=== PATIENT | male | born 1960 | race Caucasian/White ===

== ENCOUNTER 2016-09-30 19:46 | Emergency (ER) | payer MEDICARE ==
[~2016-09-30 19:46] MED LIST: ADVAIR 250-501 EACH INH; ASPIRIN EC81 MG PO; BUMETANIDE1 MG PO; COMBIVENT0.074 GM/I INH; CRESTOR20 MG PO; GLUCOPHAGE1000 MG PO; HYDRALAZINE HCL25 MG PO; ISOSORBIDE MON120 MG PO; KLONOPIN TAB 00.5 MG PO; LORTAB 5-325 M1 EACH PO; LORTAB 7.5-3251 EACH PO; LOSARTAN POTAS100 MG PO; MAG6464 MG PO; NEURONTIN 300300 MG PO; NITROSTAT0.4 MG SL; PERCOCET 5-3251 EACH PO; PREDNISONE10 MG PO; PROAIR HFA8.5 GM INH; PROMETHAZINE HC25 M1 PO; QUETIAPINE FUMA25 MG PO; RANEXA1000 MG PO; THEO-DUR 300 M300 MG PO; TIZANIDINE HCL4 MG PO; VENLAFAXINE HCL75 MG PO; VENTOLIN HFA 66.7 GM INH; VENTOLIN/PROVE0.5 ML INH; ZOFRAN ODT 4 MG4 MG PO; ZYLOPRIM 100 M100 MG PO
[2016-09-30 22:44] LABS: RED BLOOD COUNT 5.26 M/UL (4.20-5.50); WHITE BLOOD COUNT 9.3 K/UL (4.5-11.0)
[2016-09-30 23:07] LABS: BUN/CREATININE RATIO 30 (0-10)
== END 2016-10-01 03:08 | disposition home or self-care (01) ==
LOC: ER1 19:46
PROVIDERS: Physician Assistant
DX: J44.9 Chronic obstructive pulmonary disease, unspecified (principal); R10.13 Epigastric pain; R11.0 Nausea; I10 Essential (primary) hypertension; E11.9 Type 2 diabetes mellitus without complications; J45.909 Unspecified asthma, uncomplicated; I51.9 Heart disease, unspecified; E66.01 Morbid (severe) obesity due to excess calories; E78.5 Hyperlipidemia, unspecified; Z87.891 Personal history of nicotine dependence; Z79.899 Other long term (current) drug therapy
CPT/HCPCS: 36415; 71010; 80053; 81001; 82550; 82553; 83690; 83874; 83880; 84484; 85025; 87086; 93005; 96374; 96375; 99285; C9113; J2405; J7050; Q9962

== ENCOUNTER 2022-01-31 14:53 | Emergency (ER) | payer OTHER ==
[~2022-01-31 14:53] MED LIST changes: +ALPRAZOLAM0.5 MG PO; +DALIRESP250 MCG PO; +ELAVIL 50 MG TA50 MG PO; +FLOMAX0.4 MG PO; +LEVAQUIN750 MG PO; +PROSCAR5 MG PO
[2022-01-31 15:59] LABS: HEMOGLOBIN 13.6 gm/dl (14.0-17.5); RED BLOOD COUNT 5.4 M/UL (4.20-5.50); WHITE BLOOD COUNT 10.7 K/UL (4.5-11.0)
[2022-01-31] MEDS ORDERED: DOXYCYCLINE HY100 M2 PO (21:32)
[2022-01-31] MEDS ORDERED: OMNICEF 300 MG300 MG PO (21:32)
== END 2022-01-31 22:00 | disposition home or self-care (01) ==
LOC: ER1 14:53
PROVIDERS: Student in an Organized Health Care Education/Training Program
DX: N45.2 Orchitis (principal); E11.9 Type 2 diabetes mellitus without complications; I10 Essential (primary) hypertension; J44.9 Chronic obstructive pulmonary disease, unspecified; F17.210 Nicotine dependence, cigarettes, uncomplicated; Z95.5 Presence of coronary angioplasty implant and graft; Z88.5 Allergy status to narcotic agent
CPT/HCPCS: 76870; 80053; 81001; 85025; 96374; 96375; 99284; J0696; J2270; J2405